=== PATIENT | female | born 1995 | race Native Hawaiian/Other Pacific Islander ===

== ENCOUNTER 2024-11-20 10:20 | Emergency (ER) | payer OTHER, MEDICAID, SELFPAY ==
[2024-11-20 10:28] VITALS: BP 122/88; PULSE 99; RESP 19; TEMP 36.7; O2SAT 99; BMI 32.1
--- NOTE | 2024-11-20 10:34 | ECG_ITS ---
Test Reason : palpitations Blood Pressure : */* mmHG Vent. Rate : 99 BPM Atrial Rate : 99 BPM P-R Int : 126 ms QRS Dur : 86 ms QT Int : 332 ms P-R-T Axes : 46 28 11 degrees QTcB Int : 426 ms Sinus rhythm with frequent Premature ventricular complexes with junctional escape complexes Otherwise normal ECG No previous ECGs available Referred By: Generic ED Physician Electronically Signed By: Rachid Valdez
[2024-11-20 10:50] LABS: MANUAL DIFF FLAG NO
[2024-11-20 10:51] LABS: Basophils Percent Auto 0.6 % (0-2); Eosinophils Absolute Auto 0.5 X10*3/uL (0.0-0.4); Eosinophils Percent Auto 9.6 % (0-4); Hematocrit 34.3 % (37.0-47.0); Hemoglobin 10.7 g/dl (12.0-16.0); Imm Gran Abs Auto 0.02 X10*3/uL (0.00-0.03); Imm Gran Pct Auto 0.4 % (0.0-0.4); Lymphocytes Absolute Auto 2.7 X10*3/uL (1.2-4.9); Lymphocytes Percent Auto 49.5 % (20-40); Mean Corpuscular HGB Conc 31.2 g/dl (31.0-35.0); Mean Corpuscular Hemoglobin 24.5 pg (27.0-33.0); Mean Corpuscular Volume 78.7 fL (80.0-98.0); Mean Platelet Volume 9.2 fL (9.4-12.3); Monocytes Absolute Auto 0.5 X10*3/uL (0.1-1.2); Monocytes Percent Auto 8.9 % (2-11); Neutrophils Absolute Auto 1.7 x10*3/uL (2.0-8.3); Platelet Count 382 X10*3/uL (160-400); Red Blood Count 4.36 X10*6/uL (4.20-5.50); Red Cell Distribution Width 16.1 % (11.0-16.0); White Blood Count 5.4 X10*3/uL (4.8-10.8)
[2024-11-20 11:06] LABS: Alanine Aminotransferase 23 U/L (0-31); Albumin Level 4.2 g/dL (3.5-5.0); Alkaline Phosphatase 109 U/L (39-117); Anion Gap 12 (12-20); Aspartate Amino Transferase 29 U/L (5-31); Bilirubin Direct 0.1 mg/dL (0.0-0.5); Bilirubin Total 0.3 mg/dL (0.0-1.0); Blood Urea Nitrogen 10 mg/dL (9-16); Calcium 9.4 mg/dL (8.4-10.2); Carbon Dioxide 22 mmol/L (22-29); Chloride 108 mmol/L (96-108); Creatinine Clr Calc Pharmacy 110.8; Estimated Glomerular Filt Rate > 60; Glucose Random 110 mg/dL (60-115); Lipase 28 U/L (8-78); Potassium 4.1 mmol/L (3.3-5.1); Sodium 138 mmol/L (135-145); Total Protein 7.5 g/dL (6.5-8.0)
--- NOTE | 2024-11-20 11:43 | ED.ABDPAIN ---
HPI - Abdominal Pain General Chief Complaint: Abdominal Pain Stated Complaint: Upper R abd pain, high BP Time Seen by Provider: 11/20/24 10:57 History of Present Illness HPI narrative: Patient is 27 years old presents today with having abdominal pain in the right upper quadrant that is been ongoing for the last 4 weeks. Patient denies any fever chills. It is made better by pressing on it. It is not affected by food. There is no fever no chills. There is no decrease in appetite. Patient did about 9 weeks ago. There is no change in bowel movement. There is no pain on urination. There was no coughing or congestion upper respiratory symptoms. Pain is not made worse with deep breath. There is no leg swelling. Also complaining of palpitation. It is 1 beat at a time. Patient denies any fast beats. Denies any shortness of breath. Denies any syncope or near syncopal episodes. Denies any vaginal bleeding. Related Data Allergies Allergy/AdvReac Type Severity Reaction Status Date / Time No Known Allergies Allergy Verified 11/20/24 10:31 Review of Systems Review of Systems No fever no chills no diaphoresis Yes all other systems are reviewed and are negative [facility] Past Medical History Attestation statement: The following information was validated with the patient. Social History Social History Advance Directives: No Advance Directives Information Provided: Yes Do you have a plan to hurt others: No Plan Physical Exam ED Vital Signs: Vital Signs - 24 hr 11/20/24 10:28 Temperature 98.1 F Pulse Rate 99 Respiratory Rate 19 Blood Pressure 122/88 Pulse Oximetry 99 Oxygen Delivery Method Room Air BMI result Body Mass Index 32.1 Appearance: Alert. Oriented X3. No acute distress. Eyes: Pupils equal, round and reactive to light. ENT: Pharynx normal. Neck: Normal inspection. Neck supple. No lymph nodes noted. No crepitus CVS: Normal heart rate and rhythm. Pulses normal. Normal S1 and S2 Respiratory: No respiratory distress. Breath sounds normal. No Wheezing. No rales Abdomen: Soft and nontender. No rigidity. No distention. good BS x4 Skin: Skin warm and dry. Normal skin color. Normal skin turgor. Extremities: No lower extremity edema. Neurovascular intact to all extremities. No Lacerations. No Rash Neuro: Oriented X 3. No motor deficit. No sensory deficit. Moving all extermities. No slurred speech Medical Decision Making Medical Decision Making [facility] Narrative: My interpretation patient's EKG showed a sinus pattern heart rate is 70 there is unifocal PVCs noted question if it is related to patient's palpitation. Patient is well-appearing. Electrolytes are normal LFTs are normal pain has been ongoing for a few weeks. Doubt this is secondary to appendicitis. Bone Gap patient's risk of biliary disease to be low. Will have patient be started on Pepcid. Will discharge patient home. Close follow-up on an outpatient basis also with Cardiology. There is no chest pain there is no shortness but there is no diaphoresis no lower leg swelling. Bone Gap patient's risk for PE is low. Patient's blood pressure is normal here it is in the 120s range. No distress. Will discharge patient home. O2 sat is normal there is no signs of pneumonia there is no fever no chills. Differential Diagnosis Differential Diagnoses: The differential diagnosis associated with the presentation includes Admission/Observation Consideration of admission/observation: Escalation of care including admission/observation considered Lab Data [facility] Lab Attestation statement: I reviewed the patient's lab results. 11/20/24 10:46 11/20/24 10:46 Labs: Lab Results 11/20/24 Range/Units 10:46 WBC 5.4 (4.8-10.8) X10*3/uL RBC 4.36 (4.20-5.50) X10*6/uL Hgb 10.7 L (12.0-16.0) g/dl Hct 34.3 L (37.0-47.0) % MCV 78.7 L (80.0-98.0) fL MCH 24.5 L (27.0-33.0) pg MCHC 31.2 (31.0-35.0) g/dl RDW 16.1 H (11.0-16.0) % Plt Count 382 (160-400) X10*3/uL MPV 9.2 L (9.4-12.3) fL Immature Gran % (Auto) 0.4 (0.0-0.4) % Neut % (Auto) 31.0 L (45-73) % Lymph % (Auto) 49.5 H (20-40) % Spencer % (Auto) 8.9 (2-11) % Eos % (Auto) 9.6 H (0-4) % Baso % (Auto) 0.6 (0-2) % Lymph # (Auto) 2.7 (1.2-4.9) X10*3/uL Spencer # (Auto) 0.5 (0.1-1.2) X10*3/uL Eos # (Auto) 0.5 H (0.0-0.4) X10*3/uL Baso # (Auto) 0.0 (0.0-0.2) X10*3/uL Abs Immat Gran (auto) 0.02 (0.00-0.03) X10*3/uL Absolute Neuts (auto) 1.7 L (2.0-8.3) x10*3/uL Absolute Nucleated RBC 0.000 (0.0-0.012) X10*3/uL Nucleated RBC % (auto) 0.0 (0.0-0.2) /100WBC Sodium 138 (135-145) mmol/L Potassium 4.1 (3.3-5.1) mmol/L Chloride 108 (96-108) mmol/L Carbon Dioxide 22 (22-29) mmol/L Anion Gap 12 (12-20) BUN 10 (9-16) mg/dL Creatinine 0.71 (0.5-1.4) mg/dL Estim Creat Clear Calc 110.8 Estimated GFR > 60 Random Glucose 110 (60-115) mg/dL Calcium 9.4 (8.4-10.2) mg/dL Total Bilirubin 0.3 (0.0-1.0) mg/dL Direct Bilirubin 0.1 (0.0-0.5) mg/dL AST 29 (5-31) U/L ALT 23 (0-31) U/L Alkaline Phosphatase 109 (39-117) U/L Total Protein 7.5 (6.5-8.0) g/dL Albumin 4.2 (3.5-5.0) g/dL Lipase 28 (8-78) U/L Independent Interpretation I performed an independent interpretation of an: EKG (My interpretation patient's EKG showed a sinus rhythm heart rate is 70 there is unifocal PVC is noted.) Discharge Plan Discharge Clinical Impression: Unifocal PVCs, Abdominal pain in female Patient Disposition: Home, Self-Care Instructions: Premature Ventricular Contractions (ED), Abdominal Pain (ED) Referrals: Rena Leong NP [Primary Care Provider] - 11/25/24 Rachid Valdez MD [Physician] - 11/25/24 Print Language: Maltese
[2024-11-20 12:13] VITALS: BP 122/88; PULSE 99; RESP 19; TEMP 36.7; O2SAT 99
== END 2024-11-20 12:14 | disposition home or self-care (01) ==
PROVIDERS: Emergency Provider Emergency Medicine Emergency Medical Services; PCP Nurse Practitioner Family
DX: I49.3 Ventricular premature depolarization (principal); R10.9 Unspecified abdominal pain; J45.909 Unspecified asthma, uncomplicated
CPT/HCPCS: 36415; 80048; 80076; 83690; 85025; 93005; 99283; 99284

== ENCOUNTER → 2024-11-20 10:34 | Outpatient (BNV) | payer OTHER, MEDICAID, SELFPAY | PROVIDERS: Emergency Provider Emergency Medicine Emergency Medical Services; PCP Nurse Practitioner Family; Visit Provider Internal Medicine Cardiovascular Disease | DX: I49.3 Ventricular premature depolarization (principal) | CPT/HCPCS: 93010 ==

== ENCOUNTER 2024-12-06 14:37 | Outpatient (AMB) | payer OTHER, MEDICAID, SELFPAY ==
--- NOTE | 2024-12-06 14:40 | A.OFFVIS_ITS ---
Vital Signs 12/06/24 14:41 Height 5 ft 1 in Weight 7 lb 9 oz BMI 1.4 BP 122/68 Blood Pressure Location Lt brachial Position Sitting Pulse 101 H Pulse Source Pulse Oximeter Intake Visit Reasons: C/ed follow upUpper R abd pain, high BP Allergies No Known Allergies Allergy (Verified 11/20/24 10:31) Medication List - Last Reconciled 12/06/24 by Abdi Rob NP No Known Home Meds HPI Comments Details: This is a 29-year-old female patient referred for evaluation of palpitations and chest discomfort. Patient with no known history of coronary artery disease, cardiomyopathy, or ischemic heart disease. Patient was recently seen in the emergency room for palpitations, chest discomfort, and shortness of breath. She also reports dizziness associated with these palpitations. Patient reports that she feels skipped heartbeats and has all of these symptoms correlating with them. Patient notes that her symptoms are random in nature and can occur both at rest and with exertion. The patient states that this has been ongoing for the last 4 months. Patient is 3 months . She also notes having family history of grandfather passing with IL and her mom with severe hypertension. Patient denies any leg swelling, redness, or discomfort. The patient denies any exertional chest pain, orthopnea, PND, presyncope, or syncope. Additionally, she mentions ongoing stress related to her new baby under family fears which maybe contributing to her symptoms. [facility] Medical History Asthma Family History Mother High blood pressure Father No problems noted. Social History Alcohol intake: never Patient Tobacco Use Status: Never used Tobacco Review of Systems Const Denies weakness ENT Denies dizziness Card Denies chest pain, Denies chest pain with activity, Denies syncope, Denies rapid heart rate, Denies pedal edema, Denies edema, Denies leg edema, Denies lightheadedness, Reports palpitations, Denies dyspnea, Denies dyspnea on exertion and Denies orthopnea Resp Denies cough, Denies dyspnea and Denies dyspnea on exertion GI Denies hematochezia and Denies change in stool character Musc Denies abnormal gait, Reports myalgias, Denies muscle cramps, Denies muscle weakness, Denies numbness, Denies radiating pain into limb and Denies tingling Neuro Denies abnormal gait, Denies dizziness, Denies syncope, Denies numbness, Denies tingling and Denies weakness Endo Reports palpitations Physical Exam Vital Signs: Last Vital Signs Pulse 101 H 12/06/24 14:41 BP 122/68 12/06/24 14:41 BMI result Body Mass Index 1.4 Const General: cooperative, healthy appearing, comfortable and no acute distress Orientation/consciousness: patient oriented x3 HEENT Head: Yes normal to inspection Neck Neck: Yes normal visual inspection, Yes trachea midline and Yes supple Chest Chest palpation & inspection: normal inspection of the chest Resp Effort & Inspection: normal respiratory effort Auscultation: clear to auscultation bilaterally, no crackles, no rales, no rhonchi and no wheezes Cardio Jugular venous distension: no JVD Palpation: normal PMI Rate: tachycardic Rhythm: regular rhythm Heart sounds: S1 normal heart sound present, S2 normal heart sound present, no click, no gallops, no murmurs and no rubs Peripheral pulses: Peripheral pulses 2+ throughout GI Inspection: Yes normal to inspection Palpation (GI): Soft to palpation Auscultation: normal bowel sounds Skin General skin exam: no rashes or lesions noted Neuro General: patient oriented x3 Extrem General: Yes normal to inspection, No no pedal edema and No calf tenderness Psych Appearance: grossly normal Mental Status: mental status grossly normal Speech and movement: Normal speech and movement present Assessment & Plan Assessment & Plan (1) Chest pain: Code(s): R07.9 - Chest pain, unspecified Category: Medical (2) Palpitations: Code(s): R00.2 - Palpitations Category: Medical (3) Dyspnea: Code(s): R06.00 - Dyspnea, unspecified Category: Medical Plan Patient's EKG in the ER showed normal sinus rhythm with PVCs. Her symptoms are highly suggestive of ectopic beats such as PVCs and PACs which can be symptomatic. Her chest pain, shortness of breath and dizziness appear to be associated with the palpitations. Although the patient has family history of CVD, it is less likely for patient to be with IL or any coronary artery disease as she does not present with any typical anginal symptoms. Given patient's status and ongoing stress related to family responsibilities, it is possible for her symptoms to be related to stress or anxiety. We will proceed with a Holter monitor to rule out any significant arrhythmias. We will also get an echocardiogram to assess for any structural heart abnormalities. We will also get a treadmill stress test to assess for any ischemic changes. We will also check some labs including electrolytes and thyroid home runs to rule out other contributing factors. Further treatment will be based on findings. Advised heart healthy diet, regular exercise, adequate hydration, avoiding stimulants, and emphasized stress management strategies. We will follow-up after completion of these tests. In the interim, patient will call the office with any concerns or change in symptoms. This note was generated using voice recognition software. While every effort has been made to ensure accuracy and proper flexible machining system machinist, there may be occasional errors that could affect the content or meaning of the described symptoms. Orders: Orders CA echo transthoracic complete Today R06.00 - Dyspnea, unspecified ECG 3 day holter monitor Today R00.2 - Palpitations, R07.9 - Chest pain, unspecified CA stress test Today R00.2 - Palpitations, R06.00 - Dyspnea, unspecified, R07.9 - Chest pain, unspecified Basic Metabolic Panel Today R00.2 - Palpitations TSH reflex Free T4 Today R00.2 - Palpitations Coding Level of Care Code New Pt Level 4 (11949) Complex EM visit Add On G2211 Diagnoses Chest pain R07.9 Palpitations R00.2 Dyspnea R06.00 Time Spent (min) 32 Comment Time spent in reviewing the chart, test results, assessment, counseling and documentation.
[2024-12-06 14:41] VITALS: BP 122/68; PULSE 101
== END 2024-12-06 15:16 | disposition home or self-care (01) ==
LOC: HO.HCS 14:38
PROVIDERS: PCP Nurse Practitioner Family
DX: R07.9 Chest pain, unspecified (principal); R00.2 Palpitations; R06.00 Dyspnea, unspecified
CPT/HCPCS: 99204

== ENCOUNTER → 2024-12-06 14:37 | Outpatient (BNVA) | payer OTHER, MEDICAID, SELFPAY | PROVIDERS: PCP Nurse Practitioner Family ==

== ENCOUNTER → 2025-01-02 11:02 | Outpatient (REF) | payer OTHER, MEDICAID, SELFPAY ==
--- NOTE | 2025-01-02 11:05 | CA_ITS ---
Transthoracic Echocardiogram Patient (Last, First, Middle): Orquidea Jackson, Gender: Female Date of : 1995 Age: 29 Procedure Date: 01/02/2025 Procedure Type: Transthoracic Echocardiogram Location: OP Height: 162.56 cm Weight: 81.65 kg BSA: 1.87 m2 Heart Rate: 84 bpm BP: 141 / 95 mmHg Child Advocate: LUIS ARMANDO LIMON Referring MD: Abdi Rob NP Watch Dial Printer: Tarik Han MD Symptoms: R06.00 - Dyspnea, unspecified Study Quality: Adequate ECG Rhythm: Sinus Conclusions: - Essentially normal study Findings Left Ventricle Normal left ventricular size, thickness, and systolic function. The visually estimated ejection fraction is between 55-60%. Spectral Doppler is indicative of a normal filling pattern. Right Ventricle The right ventricle was not well visualized. Atria The left atrium is normal in size. Interatrial shunt cannot be excluded. The right atrium was not well visualized. Aortic Valve Normal aortic valve structure and function. There is no aortic valve stenosis. There is no aortic valve regurgitation. Mitral Valve Normal mitral valve structure and function. There is trace mitral valve regurgitation. There is no mitral valve stenosis. Pulmonic Valve The pulmonic valve was not well visualized. Tricuspid Valve Likely normal tricuspid valve structure and function. Tricuspid regurgitation envelope is inadequate for calculation of right ventricular systolic pressure. Normal right atrial pressure. Great Vessels All visible segments of the aorta are normal in size. The pulmonary artery was not well visualized. There is no dilatation of the ascending aorta measuring 2.80 cm. Venous The inferior vena cava is normal in size and collapses greater than 50% with inspiration. Pericardium/Pleural There is no evidence of pericardial effusion. Prior Study Comparison No prior study available for comparison. Measurements 2D Linear Measurements IVSd: 0.74 0.6-0.9/0.6-1.0 cm LVIDd: 4.69 3.9-5.3/4.2-5.9 cm LVIDd Index: 2.51 2.4-3.2/2.2-3.1 cm/m2 LVIDs: 3.19 2.0-3.6 cm LVPWd: 0.81 0.7-1.1 cm LA Diam: 3.00 2.7-3.8/3.0-4.0 cm LAIDs Index: 1.60 1.5-2.3 cm/m2 LV Mass: 145.64 67-162/88-224 g LV Mass Index: 77.88 43-95/49-115 g/m2 LVOT Diam: 2.00 3.0+(-)1.3 cm 2D Systolic Function EF 4C: 54.60 >55% EF 2C: 62.10 >55% EF BiP: 57.50 >55% Mitral Valve MV Pk E: 0.90 MV PK A: 0.45 MV Decel Time: 157.00 E/A: 2.00 E'Lateral: 12.70 E'Medial: 10.40 E/E' Med: 8.70 E/E' Lat: 7.10 PHT: 46.00 MVA PHT: 4.78 Decel [place]: 5.77 Aortic Valve AoV Pk Patrick: 1.38 AoV Mn Patrick: 1.01 AoV VTI: 0.27 AoV Pk Grad: 8.00 Aov Mn Grad: 5.00 VEENA Cont.VTI: 2.16 LVOT LVOT Pk Patrick: 0.99 LVOT Mn Patrick: 0.68 LVOT VTI: 0.18 LVOT Pk Grad: 4.00 LVOT Mn Grad: 2.00 LVOT Diam: 2.00 LVOT Area: 3.14 Diastolic Function MV Pk E: 0.90 MV Pk A: 0.45 E/A: 2.00 E'Medial: 10.40 E/E' Med: 8.70 E' Laterial: 12.70 E/E' Lat: 7.10 Right Ventricle TAPSE (mm): 17.80 TVS' Patrick: 9.79 Tricuspid Valve TR Pk Patrick: 1.68 TR Pk Grad: 11.00 Great Vessels Aorta Sinus of Valsalva: 2.80 2.0-3.5 cm Ao Asc: 2.80 2.1-3.4 cm Pulmonary Valve PV Pk Patrick: 1.00 Peak PV Grad: 4.00 Updated in Other Vendor System with Status of Final Tarik Han MD electronically signed on 01/03/2025 2:50:59 PM with status of Final
== END ==
LOC: HO.CARD 11:02
DX: R06.00 Dyspnea, unspecified (principal); R07.9 Chest pain, unspecified; R00.2 Palpitations
CPT/HCPCS: 93242; 93306

== ENCOUNTER → 2025-01-02 11:05 | Outpatient (BNV) | payer OTHER, MEDICAID, SELFPAY | PROVIDERS: Visit Provider Internal Medicine Cardiovascular Disease | DX: R06.00 Dyspnea, unspecified (principal) | CPT/HCPCS: 93306 ==

== ENCOUNTER → 2025-01-17 08:22 | Outpatient (REF) | payer OTHER, MEDICAID, SELFPAY ==
--- NOTE | 2025-01-17 08:24 | CA_ITS ---
Acquisition Time: 2025-01-17 08:24:40 Total Exercise Time: 00:07:00 Test Indications: CP, SOB Medications: SEE H&P Protocol: SRUTHI Max HR: 184 BPM 95% of Pred: 192 BPM Max BP: 164/60 mmHG Max Work Load: 8.5 METS Exercise stress test with exercise 7 mins of Sruthi Protocol, achieving 95% MPHR, with reports of mild SOB, no chest pain, with isolated PVCs, with normotensive response to exercise. Without any EKG changes meeting criteria for ischemia. In recovrey, pt's breathing returned to baseline. Test reviewed with Dr. Collins. Referred By: Abdi Rob Electronically Signed By: Abdi Rob
== END ==
LOC: HO.CARD 08:22
PROVIDERS: PCP Nurse Practitioner Family
DX: R07.9 Chest pain, unspecified (principal); R00.2 Palpitations; R06.00 Dyspnea, unspecified
CPT/HCPCS: 93017

== ENCOUNTER → 2025-01-17 08:24 | Outpatient (BNV) | payer OTHER, MEDICAID, SELFPAY | PROVIDERS: PCP Nurse Practitioner Family | DX: R06.02 Shortness of breath (principal); I49.3 Ventricular premature depolarization | CPT/HCPCS: 93016; 93018 ==

== ENCOUNTER 2025-02-13 14:31 | Outpatient (AMB) | payer OTHER, MEDICAID, SELFPAY ==
[2025-02-13 14:33] VITALS: BP 130/72; PULSE 105; BMI 34.7
--- NOTE | 2025-02-13 14:33 | MHC.OFFVIS ---
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 Patient was seen in the past for complaints of palpitations, chest discomfort, and shortness of breath. Subsequently patient underwent an echo, Holter, and a treadmill stress test. Today, patient is here to review those results and reports having ongoing symptoms of palpitations. Patient is denying any exertional symptoms of chest pain, shortness of breath, dizziness, orthopnea, PND, leg edema, presyncope, or syncope. Patient states that her palpitations are affecting her lifestyle which is stopping her from exercising. Patient is reporting adequate hydration and no caffeinated beverages. [facility], [facility] Medical History Asthma Family History Mother High blood pressure Father No problems noted. Social History Alcohol intake: never Patient Tobacco Use Status: Never used Tobacco Review of Systems Const Denies chills, Denies fatigue, Denies fever(s), Denies frequent falls, Denies weakness, Denies weight gain and Denies weight loss ENT Denies dizziness Card Denies chest pain, Denies leg edema, Denies lightheadedness, Denies palpitations, Denies dyspnea and Denies dyspnea on exertion Resp Denies cough, Denies dyspnea and Denies dyspnea on exertion GI Denies hematochezia Musc Denies abnormal gait, Denies muscle weakness, Denies numbness, Denies radiating pain into limb and Denies tingling Neuro Denies abnormal gait, Denies dizziness, Denies frequent falls, Denies numbness, Denies tingling and Denies weakness Endo Denies fatigue and Denies palpitations Physical Exam Vital Signs: Last Vital Signs Pulse 105 H 02/13/25 14:33 BP 130/72 02/13/25 14:33 BMI result Body Mass Index 34.7 Const General: cooperative, healthy appearing, comfortable and no acute distress Orientation/consciousness: patient oriented x3 HEENT Head: Yes normal to inspection Neck Neck: Yes normal visual inspection, Yes trachea midline and Yes supple Chest Chest palpation & inspection: normal inspection of the chest Resp Effort & Inspection: normal respiratory effort Auscultation: clear to auscultation bilaterally, no crackles, no rales, no rhonchi and no wheezes Cardio Jugular venous distension: no JVD Palpation: normal PMI Rate: tachycardic Rhythm: regular rhythm Heart sounds: S1 normal heart sound present, S2 normal heart sound present, no click, no gallops, no murmurs and no rubs Peripheral pulses: Peripheral pulses 2+ throughout GI Inspection: Yes normal to inspection Palpation (GI): Soft to palpation Auscultation: normal bowel sounds Skin General skin exam: no rashes or lesions noted Neuro General: patient oriented x3 Extrem General: Yes normal to inspection, No no pedal edema and No calf tenderness Psych Appearance: grossly normal Mental Status: mental status grossly normal Speech and movement: Normal speech and movement present Assessment & Plan Assessment & Plan (1) Palpitations: Code(s): R00.2 - Palpitations Category: Medical (2) PVC (premature ventricular contraction): Code(s): I49.3 - Ventricular premature depolarization Category: Medical Plan 01/02/2025-echo study showed a normal LV systolic function with an ejection fraction between 55-60%. 01/17/2025- patient underwent ETT with moderate workload without EKG changes or chest pain. 01/02/2025-Holter study showed underlying normal sinus rhythm with an average heart rate at 96 beats per minute, 43% being higher than 100 beats per minute. Rare supraventricular and ventricular ectopies. Patient's symptoms marked with the PVCs. Given patient's symptoms correlating with the PVCs and sinus tachycardia at rest, we will trial patient on a low-dose metoprolol therapy. Advised patient on also completing her thyroid function level that was ordered at her last visit. Blood pressure is within normal limits. Advised monitoring it at home. Advised heart healthy diet, regular exercise, adequate hydration, avoidance of caffeinated beverages, and stress medication strategies. Follow up in 4 months. In the interim, patient will call the office with any concerns or change in symptoms. This note was generated using voice recognition software. While every effort has been made to ensure accuracy and proper charge histotechnologist, there may be occasional errors that could affect the content or meaning of the described symptoms. Medications: New metoprolol succinate ER 12.5 mg (1/2 x 25 mg) PO DAILY 60 tabs 0RF Coding Level of Care Code Est Pt Level 4 (48325) Complex EM visit Add On G2211 Diagnoses Palpitations R00.2 PVC (premature ventricular contraction) I49.3 Time Spent (min) 31 Comment Time spent in reviewing the chart, test results, assessment, counseling and documentation.
== END 2025-02-13 14:55 | disposition home or self-care (01) ==
LOC: HO.HCS 14:32
PROVIDERS: PCP Nurse Practitioner Family
DX: R00.2 Palpitations (principal); I49.3 Ventricular premature depolarization
CPT/HCPCS: 99214

== ENCOUNTER 2025-02-13 14:31 | Outpatient (REF) | payer OTHER, MEDICAID, SELFPAY ==
[2025-02-13 16:01] LABS: Anion Gap 11 (12-20); Blood Urea Nitrogen 17 mg/dL (9-16); Calcium 9.5 mg/dL (8.4-10.2); Carbon Dioxide 25 mmol/L (22-29); Chloride 109 mmol/L (96-108); Estimated Glomerular Filt Rate > 60; Potassium 4.1 mmol/L (3.3-5.1); Sodium 141 mmol/L (135-145)
== END 2025-02-13 14:32 | disposition home or self-care (01) ==
LOC: HO.LAB 14:31
PROVIDERS: PCP Nurse Practitioner Family
DX: I49.3 Ventricular premature depolarization (principal); R00.2 Palpitations
CPT/HCPCS: 36415; 80048; 84443

== ENCOUNTER 2025-02-20 10:13 | Emergency (ER) | payer OTHER, MEDICAID, SELFPAY ==
--- NOTE | 2025-02-20 | ECG_ITS ---
Test Reason : palpatation Blood Pressure : */* mmHG Vent. Rate : 99 BPM Atrial Rate : 99 BPM P-R Int : 128 ms QRS Dur : 78 ms QT Int : 336 ms P-R-T Axes : 52 26 5 degrees QTcB Int : 431 ms Normal sinus rhythm with sinus arrhythmia Nonspecific T wave abnormality Abnormal ECG When compared with ECG of 20-Nov-2024 10:41, Premature ventricular complexes are no longer Present Sinus rhythm is no longer with junctional escape complexes Referred By: Generic ED Physician Electronically Signed By: TEJ TINEO MD
[2025-02-20 10:16] VITALS: BP 139/84; PULSE 119; RESP 18; TEMP 36.2; O2SAT 97; BMI 34.8
[2025-02-20 10:36] LABS: MANUAL DIFF FLAG NO
[2025-02-20 10:38] LABS: Hematocrit 33.7 % (37.0-47.0); Hemoglobin 11.0 g/dl (12.0-16.0); Imm Gran Abs Auto 0.01 X10*3/uL (0.00-0.03); Imm Gran Pct Auto 0.2 % (0.0-0.4); Lymphocytes Absolute Auto 2.8 X10*3/uL (1.2-4.9); Mean Corpuscular HGB Conc 32.6 g/dl (31.0-35.0); Mean Corpuscular Hemoglobin 25.3 pg (27.0-33.0); Mean Corpuscular Volume 77.5 fL (80.0-98.0); NRBC Abs Auto 0.000 X10*3/uL (0.0-0.012); NRBC Pct Auto 0.0 /100WBC (0.0-0.2); Platelet Count 410 X10*3/uL (160-400); Red Blood Count 4.35 X10*6/uL (4.20-5.50); White Blood Count 5.7 X10*3/uL (4.8-10.8)
[2025-02-20 10:51] LABS: Alanine Aminotransferase 25 U/L (0-31); Albumin Level 4.4 g/dL (3.5-5.0); Alkaline Phosphatase 97 U/L (39-117); Anion Gap 11 (12-20); Aspartate Amino Transferase 19 U/L (5-31); Blood Urea Nitrogen 11 mg/dL (9-16); Calcium 8.8 mg/dL (8.4-10.2); Carbon Dioxide 24 mmol/L (22-29); Chloride 110 mmol/L (96-108); Creatinine Clr Calc Pharmacy 114.1; Estimated Glomerular Filt Rate > 60; Magnesium 1.7 mg/dL (1.6-2.6); Potassium 4.0 mmol/L (3.3-5.1); Sodium 141 mmol/L (135-145); Total Protein 7.6 g/dL (6.5-8.0)
[2025-02-20 11:09] LABS: Troponin-I High Sensitivity < 2.7 ng/L (<3.5-17.0)
--- NOTE | 2025-02-20 11:26 | ED_ITS ---
HPI - General Adult General Chief complaint: General Medical Stated complaint: Lightheaded Time Seen by Provider: 02/20/25 11:26 History of Present Illness ED Provider: Barry STILES narrative: The patient is a 29-year-old female who comes to the emergency room after developing a sense of her heart racing and a sense of lightheadedness as if she might faint. This started abruptly while she was at work. 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 She says that she was sitting at a desk when her symptoms began and that there has been no particular prodromal symptoms and no particular unusual circumstances at the time of the onset of symptoms. She says that she felt that her heart was racing, she then felt lightheaded, she then asked a co-worker to drive her to the hospital because she felt as if she might faint. Her apple watch told her that her heart rate was 140 beats per minute. This was not associated with any chest pain or sense of shortness of breath. No pleuritic pain. No abdominal pain. No nausea or vomiting. She says that she has a mild headache at this point but not a severe headache. There was no headache at the onset of the symptoms. The patient uses Depo-Provera for control. The patient was seen in the emergency room if you months ago for palpitations. She has since followed up with the cardiology for PVCs. She was prescribed metoprolol 12.5 mg daily which she recently started taking. She had taken a dose of this this morning. Related Data Previous Rx's ?Medication ?Instructions ?Recorded metoprolol succinate 25 mg 12.5 mg (1/2 x 25 mg) PO JAN KILPATRICK #60 02/13/25 tablet,extended release 24 hr tabs Allergies Allergy/AdvReac Type Severity Reaction Status Date / Time No Known Allergies Allergy Verified 02/20/25 10:17 Review of Systems 2 Review of Systems: Yes all other systems are reviewed and are negative PMFSH Past Medical History Medical History Asthma Family History Family History Mother High blood pressure Father No problems noted. Social History Social History Alcohol intake: never Patient Tobacco Use Status: Never used Tobacco Smoked in Last 30 Days: No Use of substances other than those prescribed or required for medical reasons: No Advance Directives: No Advance Directives Information Provided: Yes Do you have a plan to hurt others: No Plan Patient : No Physical Exam ED Vital Signs: Vital Signs - 24 hr 02/20/25 12:44 02/20/25 14:30 02/20/25 14:30 Temperature 97.7 F 97.7 F 97.7 F Pulse Rate 114 H 89 89 Respiratory Rate 22 H 16 16 Blood Pressure 131/82 131/82 131/82 Pulse Oximetry 98 98 98 Oxygen Delivery Method Room Air Room Air Room Air BMI result Body Mass Index 34.8 Const Other: The patient is a 29-year-old woman who was awake and alert. She looks mildly anxious but not in acute distress. Orientation/consciousness: patient oriented x3 HENMT Other: Mucous membranes are moist. The appearance of the face is unremarkable Eyes Other: Conjunctivae were mildly injected. Pupils are round equal, extraocular movements intact. Neck Neck: Yes normal visual inspection, Yes full ROM and Yes no JVD Resp Effort & Inspection: normal respiratory effort Auscultation: clear to auscultation bilaterally Cardio Rate: tachycardic Rhythm: regular rhythm Heart sounds: S1 normal heart sound present and S2 normal heart sound present GI Other: The abdomen is soft and nontender Skin Other: The skin is dry and unremarkable Neuro General: patient oriented x3, moves all extremities, no focal motor deficits and CN's II-XI intact bilaterally Extrem Other: There is no calf swelling or tenderness. No asymmetry. No peripheral edema. Medications Administered Discontinued Medications Generic Name Dose Route Start Last Admin Trade Name Freq PRN Reason Stop Dose Admin Sodium Chloride 1,000 mls @ 999 mls/hr 02/20/25 12:00 02/20/25 13:43 Ns IV 02/20/25 13:00 Infused .Q1H1M LINDA Infusion Medical Decision Making Medical Decision Making [facility] Narrative: The patient is a 29-year-old female who presents with the abrupt onset symptoms of palpitations and lightheadedness and near-syncope. She had an Apple watch that indicated her heart rate was 140. She then came to the hospital. She does not have any associated chest pain or shortness of breath. There was no pleuritic pain. She uses Depo-Provera for control. She has had problems with palpitations and has 1 previous emergency room visit a few months ago for palpitations. She was found to have PVCs. She is followed up with the Cardiology and was recently started on 12.5 mg of metoprolol succinate daily. Interestingly she took a dose this morning. I do not have a good explanation for her tachycardia. Her EKG shows normal sinus rhythm with a sinus arrhythmia at 99 beats per minute. There is a nonspecific T-wave abnormality but I do not think this is an ischemic EKG. A troponin was sent which was undetectable. I do not think this is an acute coronary syndrome and I do not think she needs a 2nd EKG. Her D-dimer is undetectable. I do not think this is a pulmonary embolism. She is not anemic. She does not have an elevated BUN. She does not have any history of dark stools. I do not think this is any kind of a GI bleed or other anemia-driven tachycardia. The patient was given a L of IV fluid and she was observed. Her heart rate improved. She looked better. Overall I am somewhat puzzled by this episode but I do not think she requires hospitalization. I think she can continue her metoprolol and follow up again with her PCP and with Cardiology. She should return if worse. Lab Data 02/20/25 10:32 02/20/25 10:32 Labs: Lab Results 02/20/25 02/20/25 Range/Units 10:32 12:05 WBC 5.7 (4.8-10.8) X10*3/uL RBC 4.35 (4.20-5.50) X10*6/uL Hgb 11.0 L (12.0-16.0) g/dl Hct 33.7 L (37.0-47.0) % MCV 77.5 L (80.0-98.0) fL MCH 25.3 L (27.0-33.0) pg MCHC 32.6 (31.0-35.0) g/dl RDW 14.9 (11.0-16.0) % Plt Count 410 H (160-400) X10*3/uL MPV 9.0 L (9.4-12.3) fL Immature Gran % (Auto) 0.2 (0.0-0.4) % Neut % (Auto) 40.1 L (45-73) % Lymph % (Auto) 50.3 H (20-40) % Mason % (Auto) 6.5 (2-11) % Eos % (Auto) 2.7 (0-4) % Baso % (Auto) 0.2 (0-2) % Lymph # (Auto) 2.8 (1.2-4.9) X10*3/uL Mason # (Auto) 0.4 (0.1-1.2) X10*3/uL Eos # (Auto) 0.2 (0.0-0.4) X10*3/uL Baso # (Auto) 0.0 (0.0-0.2) X10*3/uL Abs Immat Gran (auto) 0.01 (0.00-0.03) X10*3/uL Absolute Neuts (auto) 2.3 (2.0-8.3) x10*3/uL Absolute Nucleated RBC 0.000 (0.0-0.012) X10*3/uL Nucleated RBC % (auto) 0.0 (0.0-0.2) /100WBC D-Dimer High Sensitivty < 150 NG/ML Sodium 141 (135-145) mmol/L Potassium 4.0 (3.3-5.1) mmol/L Chloride 110 H (96-108) mmol/L Carbon Dioxide 24 (22-29) mmol/L Anion Gap 11 L (12-20) BUN 11 (9-16) mg/dL Creatinine 0.72 (0.5-1.4) mg/dL Estim Creat Clear Calc 114.1 Estimated GFR > 60 Random Glucose 112 (60-115) mg/dL Calcium 8.8 D (8.4-10.2) mg/dL Magnesium 1.7 (1.6-2.6) mg/dL Total Bilirubin 0.4 (0.0-1.0) mg/dL AST 19 (5-31) U/L ALT 25 (0-31) U/L Alkaline Phosphatase 97 (39-117) U/L Troponin I High Sens < 2.7 (<3.5-17.0) ng/L Total Protein 7.6 (6.5-8.0) g/dL Albumin 4.4 (3.5-5.0) g/dL Beta HCG, Quant < 2 mIU/mL Independent Interpretation I performed an independent interpretation of an: EKG Interpretation: EKG at 10:24 shows normal sinus rhythm with a sinus arrhythmia 99 beats per minute. There are nonspecific T-wave abnormalities. Discharge Plan Discharge Clinical Impression: Heart palpitations, Tachycardia, Near syncope, Lightheadedness Patient Disposition: Home, Self-Care Additional Instructions: Your heart rate today was quite fast but there does not seem to be any obviously dangerous process at work to account for this. I think it would be reasonable for you to increase your dose of metoprolol to a full tablet daily until you follow up with your cardiology office. Rest today and drink lot of fluids. Please make a follow up appointment with your cardiology office and your primary care doctor to discuss this episode further. If you feel significantly worse please return to the emergency room. Prescriptions: No Action metoprolol succinate 25 mg tablet extended release 24 hr 12.5 mg PO DAILY Qty: 60 0RF Referrals: Rena Leong NP [Primary Care Provider, Internal Medicine] Abdi Rob NP [Nurse Practitioner, Cardiology] Interventions: ED Discharge Assessment Last Done: 02/20/25 14:30 Discharge Date/Time: 02/20/25 14:32 Print Language: Polish
[2025-02-20 12:31] LABS: D Dimer High Sensitivity < 150 NG/ML
[2025-02-20 12:44] VITALS: BP 131/82; PULSE 114; RESP 22; TEMP 36.5; O2SAT 98
--- NOTE | 2025-02-20 14:23 | PC.NURSE ---
DC delayed d/t CXR order, confirmed with Dr. Moore patient was to wait for XR before DC, Dr. Moore stated he inadvertently ordered/will cancel. Patient to be DC'd.
[2025-02-20 14:30] VITALS: BP 131/82; PULSE 89; RESP 16; TEMP 36.5; O2SAT 98
== END 2025-02-20 14:32 | disposition home or self-care (01) ==
PROVIDERS: Emergency Provider Emergency Medicine; PCP Nurse Practitioner Family
DX: R42 Dizziness and giddiness (principal); R00.2 Palpitations; R00.0 Tachycardia, unspecified; R55 Syncope and collapse; R11.0 Nausea; R10.2 Pelvic and perineal pain; I49.8 Other specified cardiac arrhythmias; Z79.899 Other long term (current) drug therapy
CPT/HCPCS: 36415; 80053; 83735; 84484; 84702; 85025; 85379; 93005; 96360; 96361; 99284

== ENCOUNTER → 2025-02-20 10:24 | Outpatient (BNV) | payer OTHER, MEDICAID, SELFPAY | PROVIDERS: Emergency Provider Emergency Medicine; PCP Nurse Practitioner Family; Visit Provider Internal Medicine Cardiovascular Disease | DX: R94.31 Abnormal electrocardiogram [ECG] [EKG] (principal); R00.2 Palpitations | CPT/HCPCS: 93010 ==

== ENCOUNTER 2025-06-12 13:35 | Outpatient (AMB) | payer OTHER, MEDICAID, SELFPAY ==
[2025-06-12 13:42] VITALS: BP 110/68; PULSE 61; BMI 33.7
--- NOTE | 2025-06-12 13:42 | A.OFFVIS_ITS ---
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 Patient has been seen in the office previously for complaints of palpitations and chest discomfort for which patient has undergone echo, Holter, and a stress test. On the Holter was noted that patient had sinus tachycardia with rare PACs and PVCs. Given her symptomatic PVCs, patient was started on metoprolol therapy. Me, patient is reporting feeling well overall without any symptoms of exertional chest pain, shortness of breath, dizziness, orthopnea, PND, leg edema, presyncope or syncope. Patient states that her palpitations have improved significantly on the metoprolol however intermittently she feels them. [facility] Medical History Asthma Family History Mother High blood pressure Father No problems noted. Social History Alcohol intake: never Patient Tobacco Use Status: Never used Tobacco Review of Systems Const Denies daytime sleepiness, Denies difficulty sleeping, Denies snoring, Denies stops breathing during sleep and Denies weakness Card Denies chest pain, Denies rapid heart rate, Denies irregular heart rhythm, Denies claudication, Denies leg edema, Denies lightheadedness, Denies palpitations, Denies dyspnea, Denies dyspnea on exertion, Denies orthopnea, Denies paroxysmal nocturnal dyspnea and Denies slow heart rate Resp Denies cough, Denies dyspnea, Denies dyspnea on exertion and Denies snoring GI Reports no additional complaints, Denies hematochezia, Denies change in stool character and Denies dyspepsia Musc Denies abnormal gait, Denies muscle weakness and Denies numbness Neuro Denies abnormal gait, Denies numbness and Denies weakness Endo Denies palpitations Physical Exam Vital Signs: Last Vital Signs Pulse 61 06/12/25 13:42 BP 110/68 06/12/25 13:42 BMI result Body Mass Index 33.7 Const General: cooperative, healthy appearing, comfortable and no acute distress Orientation/consciousness: patient oriented x3 HEENT Head: Yes normal to inspection Neck Neck: Yes normal visual inspection, Yes trachea midline and Yes supple Chest Chest palpation & inspection: normal inspection of the chest Resp Effort & Inspection: normal respiratory effort Auscultation: clear to auscultation bilaterally, no crackles, no rales, no rhonchi and no wheezes Cardio Jugular venous distension: no JVD Palpation: normal PMI Rate: tachycardic Rhythm: regular rhythm Heart sounds: S1 normal heart sound present, S2 normal heart sound present, no click, no gallops, no murmurs and no rubs Peripheral pulses: Peripheral pulses 2+ throughout GI Inspection: Yes normal to inspection Palpation (GI): Soft to palpation Auscultation: normal bowel sounds Skin General skin exam: no rashes or lesions noted Neuro General: patient oriented x3 Extrem General: Yes normal to inspection, No no pedal edema and No calf tenderness Psych Appearance: grossly normal Mental Status: mental status grossly normal Speech and movement: Normal speech and movement present Assessment & Plan Assessment & Plan (1) Palpitations: Code(s): R00.2 - Palpitations Category: Medical (2) PVC (premature ventricular contraction): Code(s): I49.3 - Ventricular premature depolarization Category: Medical Plan 01/02/2025-echo study showed a normal LV systolic function with an ejection fraction between 55-60%. 01/17/2025- patient underwent ETT with moderate workload without EKG changes or chest pain. 01/02/2025-Holter study showed underlying normal sinus rhythm with an average heart rate at 96 beats per minute, 43% being higher than 100 beats per minute. Rare supraventricular and ventricular ectopies. Patient's symptoms marked with the PVCs. Clinically stable and without any cardiac symptoms. Patient was started on low-dose metoprolol therapy for her symptomatic PVCs. Patient states she has been feeling better on this. Continue same. Advised on adequate hydration. Recommended avoiding caffeinated beverages and other stimulants such as alcohol. Advised heart healthy diet, regular exercise, losing weight, and stress mitigation strategies. Follow up on an as-needed basis. In the interim, patient will call the office with any concerns or change in symptoms. This note was generated using voice recognition software. While every effort has been made to ensure accuracy and proper science education professor, there may be occasional errors that could affect the content or meaning of the described symptoms. Coding Level of Care Code Est Pt Level 3 (48727) Complex visit Add On G2211 Diagnoses Palpitations R00.2 PVC (premature ventricular contraction) I49.3 Time Spent (min) 29 Comment Time spent in reviewing the chart, test results, assessment, counseling and documentation.
--- OUTSIDE RECORDS SUMMARY | 2025-06-12 19:01 | XMS_ITS | Data Portability ---
Demographics Address [address] [place] [address] Home Phone Email Address Preferred Language en Marital Status Never Holiness Affiliation Unknown Race Unknown Ethnic Group Unknown Author Organization [facility] [address] Address [address] [place] [address] Assessment No assessment recorded. Plan of Treatment Reminders Order Date Submit Date Provider Last Modified By Organization Details Last Modified Time Details Appointments None recorded. Lab None recorded. Referral None recorded. Procedures None recorded. Surgeries None recorded. Imaging None recorded. Medication Orders triamcinolo ne acetonide 0.1 % topical ointment 2022 023 [facility] #[id number], [address] [place], [address], 19:39:51 Patient TargetsNo targets recorded. Patient Instructions Encounter Date Encounter Id Patient Instructions Last Modified By Organization Details Last Modified Time 08/19/2022 [id number] eczema information [email or web address] Not available 08/19/2022 19:40:01 Reason for Referral None Reported. Problems Name Problem SNOMED Code Status Onset Date Resolution Date Notes Provider Name and Address Organization Details Recorded Time Asthma 302173615 Active 023 [facility] 08/19/2022 19:20:45 Problem Notes None recorded. Medical Equipment None Reported. Allergies No known drug allergies Medications Name Sig Start Date Stop Date Status Note LastModified by Organization Details LastModified Time fluconazole 150 mg tablet TAKE 1 TABLET BY MOUTH ONCE, MAY REPEAT DOSE IN 3 DAYS IF NEEDED 08/19 completed Not Available Not Available Not Available metronidazo le 0.75 % (37.5 mg/5 gram) vaginal gel APPLY VAGINALLY AT BEDTIME FOR 5 DAYS 08/19 completed Not Available Not Available Not Available valacyclovi r 500 mg tablet TAKE 1 TABLET BY MOUTH TWICE A DAY FOR 3 DAYS FOR OUTBREAK 08/19 completed Not Available Not Available Not Available triamcinolo ne acetonide 0.1 % topical ointment APPLY A THIN LAYER TO THE AFFECTED AREA(S) BY TOPICAL ROUTE 2 TIMES PER DAY x 7 d 2022 active Not Available Not Available Not Avai lable nitrofurant oin monohydrate /macrocryst als 100 mg capsule TAKE 1 CAPSULE BY MOUTH EVERY 12 HOURS FOR 5 DAYS 08/19 completed Not Available Not Available Not Available Vitals Date Recorded Body height Body mass index (BMI) Body weight Body temperature Oxygen saturation Heart rate Respiratory rate Systolic And Diastolic Provider Name and Address Organization Details Last Updated DateTime 3 154.94 cm 29.3 kg/m2 65233.8 2 g 97 [degF] 100 % 99 /min 16 /min 128/82 mm[Hg] CHUCK TAVARES [employer] [facility] 19:23:53 Social History Question Answer Notes LastModified by [employer] Details LastModified Time Tobacco Smoking Status Never Smoker CHUCK aleman PA [employer] [facility] 08/19/2022 19:21:07 Have You Recently Traveled Abroad? No [email or web address] Information not available 08/19/2022 Sex: Unknown Functional Status Question Answer Note LastModified by [employer] Details LastModified Time Do you use any illicit or recreational drugs? No [email or web address] Information not available 08/19/2022 Do you or have you ever used any other forms of tobacco or nicotine? No Information not available 08/19/2022 What is your level of alcohol consumption? None Information not available 08/19/2022 Mental Status None recorded. Family History Relationship Description Onset Age of this Age Resolved Age Notes LastModified by Organization Details LastModified Time Father No current problems or disability [email or web address] Not available 08/19 19:20:52 Mother No current problems or disability [email or web address] Not available 08/19 19:20:52 Medical History No medical history recorded. Gynecological History Statement/Question Response Date of LMP 08/13/2022 Obstetrics History GPAL:G 0 P 0 0 0 0 Past Encounters Encounter ID Performer Location Encounter Start Date Encounter Closed Date Diagnosis/Indication Diagnosis SNOMED-CT Code Diagnosis ICD10 Code Diagnosis IMO Codes Diagnosis Note [id number] [facility] [address] [place] [id number] 04/04/2016 15:15:39 04/04/2016 15:40:[id number] [place] [address] [address] [address] [place] [id number] 10/28/2018 10:40:04 10/28/2018 10:57:[id number] [place] [address] [address] [address] [place] [id number] 02/17/2016 17:50:00 02/17/2016 18:13:[id number] [place] [address] [address] [address] 05/19/2021 09:14:55 05/19/2021 11:46:[id number] [place] [address] [address] [address] 05/02/2019 13:14:44 05/02/2019 13:52:[id number] [place] [address] [address] [address] 06/06/2019 13:36:49 06/06/2019 16:06:[id number] [place] [address] [address] [address] 10/30/2018 11:47:19 10/30/2018 12:22:37 [id number] Domingo Escobar DO [address] [address] [place] [address] 08/19/2022 19:13:28 08/19/2022 19:46:08 Eczema 88754532 L30.9 d/w patient bathing/sh owering recommenda tionsUse gentle soaps (Cetaphil, cereve, white dove), good thick lotions (eucerin, aveeno, lubiderm, curel, aquaphor). aveeno, white dove), good thick lotions (aveeno, lubiderm, curel, aquaphor) to moisturize twice daily.Non- colored non-scente d lotions and soaps onlytrial of topical steroid Patient advised to follow up as needed for worsening symptoms or no improvemen t. Health Concerns Section Related Observation LastModified by Organization Detai ls LastModified Time None Recorded Concern Status LastModified by Organization Details LastModified Time None Recorded Advance Directives Directive None Recorded Payers Insurance Date Sequence Insurance Name Policy Number Policy Martel Covered Member ID Martel Member ID Guarantor Name 08/19/2022 1 [facility] [facility] [place] [id number] Orquidea Martel [id number] Orquidea Martel 08/19/2022 2 [place] [facility] Orquidea Martel [id number] Orquidea Martel Notes Date Note Type Note Provider Name and Address Organization Details Recorded Time 08/19/2022 text/html ROS as noted in the HPI 27 yo femalec/o rash on L upper thigh rash 3-4 x daysno f/c/n/v uses soapDenies any new pets, foods, meds, supplements, soaps, detergents, hygeine products etcno known biteshas not been outside, near [place] or near poison ade/tick sources no fatigueno myalgia no known sick contactstried with out improvement Domingo Escobar, DO [address] [place], [address], [place] - [facility] 08/19/2022 19:42:10 OBGyn Episode No OBEpisode recorded.
== END 2025-06-12 14:00 | disposition home or self-care (01) ==
LOC: HO.HCS 13:36
PROVIDERS: PCP Nurse Practitioner Family
DX: R00.2 Palpitations (principal); I49.3 Ventricular premature depolarization
CPT/HCPCS: 99213